=== PATIENT | female | born 1945 | race Caucasian/White ===

== ENCOUNTER → 2025-05-19 | Outpatient (CLI) | payer MEDICARE, OTHER, SELFPAY ==
--- NOTE | 2025-05-19 16:46 | RAD_ITS ---
PROCEDURE: THORACIC SPINE 3 VIEWS 05/19/2025 REASON FOR EXAM: POSTLAMINECTOMY SYNDROME, NOT ELSEWHERE CLASSIFIED TECHNIQUE: THORACIC SPINE 3 VIEWS COMPARISON: None FINDINGS: Vertebrae: Multilevel disc space narrowing and spondylosis. Marked degree of dextroconvex scoliosis of the thoracic spine and levoconvex scoliosis of the lumbar spine. RAD/Thoracic Spine 3 Views IMPRESSION: Dextroscoliosis of the thoracic spine and levoscoliosis of the lumbar spine. Reading Location: [id number]
--- NOTE | 2025-05-19 16:46 | RAD_ITS ---
PROCEDURE: LUMBAR SPINE 2 OR 3 VIEWS 05/19/2025 REASON FOR EXAM: POSTLAMINECTOMY SYNDROME, NOT ELSEWHERE CLASSIFIED TECHNIQUE: LUMBAR SPINE 2 OR 3 VIEWS COMPARISON: No FINDINGS: Moderately severe S shaped scoliosis. Severe and diffuse facet arthritis. Multilevel moderately severe disc space narrowing, endplate sclerosis, osteophyte formation. No acute bone or soft tissue pathology. IVC filter. Surgical clips in the right midabdomen. RAD/Lumbar Spine 2 or 3 Views IMPRESSION: Lumbar spine scoliosis and degeneration. [facility]
== END | disposition home or self-care (01) ==
LOC: RAD 16:40
PROVIDERS: PCP Internal Medicine; Referring Provider Anesthesiology Pain Medicine; Visit Provider Anesthesiology Pain Medicine
DX: M96.1 Postlaminectomy syndrome, not elsewhere classified (principal)
CPT/HCPCS: 72072; 72100